=== PATIENT | male | born 1975 | race Caucasian/White ===

== ENCOUNTER 2024-10-26 07:54 | Emergency (ER) | payer BC ==
[2024-10-26] MEDS ORDERED: Sodium Chloride 0.9% 10 ML Syringe FLUSH PRN (07:58)
[2024-10-26 08:32] LABS: BASOPHILS ABSOLUTE AUTO 0.0 K/mm3 (0.0-0.2); BASOPHILS PERCENT AUTO 0.8 % (0.0-1.0); EOSINOPHILS ABSOLUTE AUTO 0.1 K/mm3 (0.0-0.4); EOSINOPHILS PERCENT AUTO 2.3 % (0.0-6.0); IMMATURE GRAN ABSOLUTE AUTO 0.01 K/mm3 (0.00-0.05); IMMATURE GRAN PERCENT AUTO 0.2 % (0.0-0.4); LYMPHOCYTES ABSOLUTE AUTO 1.5 K/mm3 (1.0-4.8); LYMPHOCYTES PERCENT AUTO 31.8 % (24.0-44.0); MEAN PLATELET VOLUME 10.6 fl (9.4-12.4); MONOCYTES ABSOLUTE AUTO 0.5 K/mm3 (0.0-0.8); MONOCYTES PERCENT AUTO 9.4 % (0.0-8.0); NEUTROPHILS ABSOLUTE AUTO 2.7 K/mm3 (1.8-7.7); NEUTROPHILS PERCENT AUTO 55.5 % (41.0-71.0); NRBC ABSOLUTE 0.00 (0.00-0.02); NRBC PERCENT 0.0 % (0.0-0.2); PLATELET COUNT,PLT 210 K/mm3 (150-400); RED BLOOD CELL COUNT 5.19 M/mm3 (4.52-5.90); WHITE BLOOD CELL COUNT,WBC 4.81 K/mm3 (3.9-11.3)
[2024-10-26 09:20] LABS: BLOOD UREA NITROGEN,BUN 24 mg/dL (7-18); CARBON DIOXIDE,CO2 30 mEq/L (21-32); CHLORIDE,CL 106 mEq/L (98-107); CREATININE 1.1 mg/dL (0.7-1.3); EST CRCL DRUG DOSING (CG) 80.34 mL/min; ESTIMATED GFR 82 mL/min (>60); GLUCOSE RANDOM 117 mg/dL (70-99); POTASSIUM,K 3.8 mEq/L (3.5-5.1); PROTEIN TOTAL,TP 6.3 g/dl (6.4-8.2); SODIUM,NA 139 mEq/L (136-145)
[2024-10-26 09:21] LABS: A/G RATIO 1.3 (1-2); ALANINE AMINOTRANSFERASE,ALT 58 U/L (16-63); ASPARTATE AMNIOTRANSFERASE,AST 51 U/L (15-37); BILIRUBIN TOTAL 1.2 mg/dL (0.2-1.0)
[2024-10-26 09:30] LABS: TROPONIN I HIGH SENSITIVITY < 4 pg/mL (<=76)
[2024-10-26] MEDS: Iopamidol 755 Mg/ML 100 ML Bottle IVPUSH ONE (10:32)
[2024-10-26] MEDS: Sodium Chloride 0.9% 10 ML Syringe FLUSH ONE (10:32)
== END 2024-10-26 12:20 | disposition home or self-care (01) ==
LOC: MERGE 07:54 → JD.ED 07:54
DX: R56.9 Unspecified convulsions (principal); R55 Syncope and collapse; M25.551 Pain in right hip
CPT/HCPCS: 36415; 70450; 71045; 71275; 73502; 80053; 83735; 83880; 84484; 85025; 85379; 93005; 99285; A9270; Q9967